=== PATIENT | male | born 1995 | race Caucasian/White ===

== ENCOUNTER 2020-04-14 20:40 | Emergency (ER) | payer OTHER ==
[2020-04-14 20:45] VITALS: BP 118/69; PULSE 84; RESP 18; TEMP 98.1
--- NOTE | 2020-04-14 21:50 | ED ---
General Adult HPI - General Chief complaint: Dental/Oral Stated complaint: Tooth Pain Time Seen by Provider: 04/14/20 21:01 Source: patient, RN notes reviewed, old records reviewed Mode of arrival: ambulatory Limitations: no limitations - History of Present Illness Initial comments: 25-year-old male patient no pertinent past medical history presents to ED for evaluation of left lower dental pain. Patient wanted through Thursday he had a filling and was told he might need more work because it was relatively deep. Patient now having lots of pain in his left lower molar region. Denies any fevers and the reason for immunocompromised state. Denies any other complaints. Systemic: Pt denies fatigue, fever/chills, rash. Pt denies weakness, night sweats, weight loss. Neuro: Pt denies headache, visual disturbances, syncope or pre-syncope. HEENT: Pt denies ocular discharge or irritation, otalgia, rhinorrhea, pharyngitis or notable lymphadenopathy. Cardiopulmonary: Pt denies chest pain, SOB, heart palpitations, dyspnea on exertion. Abdominal/GI: Pt denies abdominal pain, n/v/d. : Pt denies dysuria, burning w/ urination, frequency/urgency. Denies new onset urinary or bowel incontinence. MSK: Pt denies myalgia, loss of strength or function in extremities. Neuro: Pt denies new onset weakness, paresthesias. - Related Data Previous Rx's Medication Instructions Recorded Amoxicillin/Potassium Clav 1 each PO Q12HR #20 tab 01/20/14 [Augmentin 875-125 Tablet] Penicillin V Potassium [Pen Vee K] 500 mg PO QID 7 Days #28 tablet 04/14/20 Allergies Allergy/AdvReac Type Severity Reaction Status Date / Time No Known Allergies Allergy Verified 04/14/20 20:45 Review of Systems ROS Statement: Those systems with pertinent positive or pertinent negative responses have been documented in the HPI. ROS Other: All systems not noted in ROS Statement are negative. Past Medical History Past Medical History: No Reported History History of Any Multi-Drug Resistant Organisms: None Reported Past Surgical History: No Surgical Hx Reported Past Psychological History: No Psychological Hx Reported Past Alcohol Use History: None Reported Past Drug Use History: None Reported General Exam - General Exam Comments Initial Comments: Constitutional: NAD, AOX3, Pt has pleasant affect. HEENT: NC/AT, trachea midline, neck supple, no lymphadenopathy. Posterior pharynx non erythematous, without exudates. Mild tenderness to 2/18 tooth. No abscess no significant gum erythema. External ears appear normal, without discharge. Mucous membranes moist. EOM intact. There is no scleral icterus. No pallor noted. Cardiopulmonary: RRR, no murmurs, rubs or gallops, no JVD noted. Lungs CTAB in anterior and posterior villarreal. No peripheral edema. Abdominal exam: Abdomen soft and non-distended. Abdomen non-tender to palpation in all 4 quadrants. Bowel sounds active in LLQ. No hepatosplenomegaly. No ecchymosis Neuro: CN II-XII grossly intact. MSK: Full active ROM in upper and lower extremities. Limitations: no limitations Course Vital Signs 04/14/20 20:43 Temperature 98.1 F Pulse Rate 84 Respiratory 18 Rate Blood Pressure 118/69 O2 Sat by Pulse 99 Oximetry Medical Decision Making - Medical Decision Making 25-year-old male patient with seizure evaluation of dental pain has been ongoing for the last 4 days. Patient no signs are stable, afebrile. Physical exam does display tenderness to tooth where a filling was placed. Patient was placed on penicillin VK and will discharge the patient primary care and until follow-up. Case discussed with Dr. Leavitt. Disposition Clinical Impression: Pain, dental Disposition: HOME SELF-CARE Condition: Stable Instructions (If sedation given, give patient instructions): Toothache (ED) Additional Instructions: follow-up with primary care provider and dentist tomorrow. Take antibiotics as directed. Return to ER with any worsening symptoms. Prescriptions: Penicillin V Potassium [Pen Vee K] 500 mg PO QID 7 Days #28 tablet Is patient prescribed a controlled substance at d/c from ED?: No Referrals: Sundeep Umana MD [Primary Care Provider] - 1-2 days
[2020-04-14] MEDS ORDERED: PENICILLIN VK 500MG STARTER 4 TAB BTL PO STA (21:54)
[2020-04-14] MEDS ORDERED: ACET/COD 300 MG/30 MG STARTER PACK 6 TAB BTL PO STA (21:54)
== END 2020-04-14 22:07 | disposition home or self-care (01) ==
LOC: EC 20:40
DX: K08.89 Other specified disorders of teeth and supporting structures (principal); R56.9 Unspecified convulsions
CPT/HCPCS: 99283